=== PATIENT | male | born 1955 | race Caucasian/White ===

== ENCOUNTER → 2019-04-10 | Outpatient (CLI) | payer SELFPAY ==
[~2019-04-10] MED LIST: CELEBREX100 MG PO; LEVAQUIN500 MG PO; LEVOFLOXAC500 MG/100 IV; LEVOTHYROX200 MCG/VI PO; LEVOTHYROXINE50 MCG PO; LOSARTAN POTAS100 MG PO; METRONIDAZOLE500 MG PO; PANTOPRAZOLE SO40 MG PO; POTASSIUM CITR10 MEQ PO; PROMETHAZINE HC25 M1 PO; SULFAMETHOXAZO1 EACH PO; TYLENOL WITH C1 EACH PO; ZOFRAN ODT4 MG PO
[2019-04-10 10:44] LABS: PROTHROMBIN TIME 13.7 seconds (11.9-14.5)
== END ==
LOC: RAD 09:46
PROVIDERS: ATTEND Nurse Practitioner Acute Care
DX: I80.01 Phlebitis and thrombophlebitis of superficial vessels of right lower extremity (principal); E66.01 Morbid (severe) obesity due to excess calories
CPT/HCPCS: 36415; 85379; 85610